=== PATIENT | male | born 1960 | race African-American/Black ===

== ENCOUNTER 2016-09-07 19:08 | Emergency (ER) | payer SELFPAY ==
[~2016-09-07] VITALS: Ht 177.8 cm; Wt 81.0 kg
[2016-09-07] MEDS ORDERED: METOCLOPRAMIDE HCL 10MG/2ML VIAL IV ONE (22:30)
[2016-09-07] MEDS ORDERED: SODIUM CHLORIDE 0.9% 1,000 ML IV ONE (22:30)
[2016-09-07] MEDS ORDERED: DIPHENHYDRAMINE 50MG/ML VIAL IV ONE (22:30)
[2016-09-07] MEDS ORDERED: KETOROLAC 30MG/ML VIAL IV ONE (22:30)
[2016-09-08 00:50] VITALS: BP 121/52
== END 2016-09-08 02:05 | disposition home or self-care (01) ==
LOC: ER 21:37
DX: R51 Headache (principal); R11.2 Nausea with vomiting, unspecified; F17.200 Nicotine dependence, unspecified, uncomplicated; F12.10 Cannabis abuse, uncomplicated
CPT/HCPCS: 70450; 82962; 96361; 96374; 96375; 99285; J1200; J1885; J2765; J7030; Z7610

== ENCOUNTER 2019-01-06 09:27 | Emergency (ER) | payer SELFPAY ==
[~2019-01-06] VITALS: Ht 175.3 cm; Wt 73.0 kg
[2019-01-06] MEDS ORDERED: ONDANSETRON HCL 4MG/2ML INJ IV STA (10:07)
[2019-01-06] MEDS ORDERED: SODIUM CHLORIDE 0.9% 1,000 ML IV ONE (10:07)
[2019-01-06] MEDS ORDERED: KETOROLAC 15MG/ML VIAL IV ONE (10:15)
[2019-01-06 10:35] LABS: BASOPHILS % 0.4 % (0.0-2.0); EOSINOPHILS % 2.2 % (0.0-5.0); HEMATOCRIT. 41.7 % (42.0-52.0); HEMOGLOBIN. 14.4 g/dL (14.0-18.0); LYMPHOCYTES % 18.4 % (20.0-50.0); MEAN CORPUSCULAR HEMOGLOBIN 31.6 pg (28.0-32.0); MEAN CORPUSCULAR VOLUME 91.6 fL (80.0-94.0); MONOCYTES % 5.2 % (2.0-8.0); NEUTROPHILS % 73.8 % (40.0-76.0); PLATELET 191 x1000/uL (130-400); RED BLOOD CELL COUNT 4.55 mill/uL (4.7-6.1); RED CELL DISTRIBUTION WIDTH 14.5 % (11.6-14.6)
[2019-01-06 10:41] LABS: CHLORIDE 106 mEq/L (98-107)
[2019-01-06 10:44] LABS: ETHANOL BLOOD < 10 mg/dL
[2019-01-06 13:24] LABS: CLARITY URINE CLEAR (CLEAR); COLOR URINE YELLOW (YELLOW); KETONES URINE TRACE (NEGATIVE); LEUKOCYTE ESTERASE URINE NEGATIVE (NEGATIVE); NITRITE URINE NEGATIVE (NEGATIVE); OCCULT BLOOD URINE NEGATIVE (NEGATIVE); PH URINE 5.5 (4.5-8.0); PROTEIN URINE TRACE (NEGATIVE); SPECIFIC GRAVITY URINE 1.029 (1.005-1.030)
[2019-01-06 13:53] LABS: *AMPHETAMINES SCREEN URINE NEGATIVE (NEGATIVE)
[2019-01-06 13:54] LABS: *BARBITURATES SCREEN URINE NEGATIVE (NEGATIVE); *BENZODIAZEPINES SCREEN URINE NEGATIVE (NEGATIVE); *COCAINE SCREEN URINE PRESUMTIVE POSITIVE (NEGATIVE); METHADONE URINE SCREEN NEGATIVE (NEGATIVE); OPIATES URINE SCREEN NEGATIVE (NEGATIVE); PHENCYCLIDINE URINE SCREEN NEGATIVE (NEGATIVE)
[2019-01-06 13:55] LABS: CANNABINOID URINE SCREEN PRESUMTIVE POSITIVE (NEGATIVE)
[2019-01-06 14:46] VITALS: BP 123/68
== END 2019-01-06 14:55 | disposition home or self-care (01) ==
LOC: ER 09:50
DX: R10.0 Acute abdomen (principal); F12.129 Cannabis abuse with intoxication, unspecified; F14.129 Cocaine abuse with intoxication, unspecified; R03.0 Elevated blood-pressure reading, without diagnosis of hypertension
CPT/HCPCS: 36415; 71045; 74176; 80053; 80305; 80320; 81003; 83690; 85025; 93005; 96374; 96375; 99284; J1885; J2405; J7030; G0480

== ENCOUNTER 2021-10-11 07:27 | Emergency (ER) | payer MEDICAID ==
[~2021-10-11] VITALS: Ht 175.3 cm; Wt 74.0 kg
[2021-10-11] MEDS ORDERED: MORPHINE SULFATE 4 MG/ML CPJ (NOT FOR IM USE) IV ONE (08:00)
[2021-10-11 08:04] VITALS: BP 138/87
[2021-10-11 08:11] LABS: BASOPHILS % 0.6 % (0.0-2.0); EOSINOPHILS % 1.8 % (0.0-5.0); HEMATOCRIT. 45.3 % (42.0-52.0); HEMOGLOBIN. 15.7 g/dL (14.0-18.0); LYMPHOCYTES % 24.3 % (20.0-50.0); MEAN CORPUSCULAR HEMOGLOBIN 31.3 pg (28.0-32.0); MEAN CORPUSCULAR VOLUME 90.2 fL (80.0-94.0); MEAN PLATELET VOLUME 8.8 fl (7.4-10.4); MONOCYTES % 8.5 % (2.0-8.0); NEUTROPHILS % 64.8 % (40.0-76.0); PLATELET 203 x1000/uL (130-400); RED BLOOD CELL COUNT 5.03 mill/uL (4.7-6.1); RED CELL DISTRIBUTION WIDTH 14.3 % (11.6-14.6)
[2021-10-11 08:18] LABS: CHLORIDE 107 mEq/L (98-107)
[2021-10-11] MEDS ORDERED: OMEP20TA2 PO (10:28)
[2021-10-11] MEDS ORDERED: TOPUD PO (10:28)
== END 2021-10-11 10:49 | disposition home or self-care (01) ==
LOC: ER 07:27
DX: R07.89 Other chest pain (principal); R03.0 Elevated blood-pressure reading, without diagnosis of hypertension
CPT/HCPCS: 36415; 71045; 80053; 83880; 84484; 85025; 93005; 96374; 99285; J2270

== ENCOUNTER 2021-11-13 08:21 | Emergency (ER) | payer MEDICAID ==
[~2021-11-13] VITALS: Ht 175.3 cm; Wt 73.0 kg
[~2021-11-13 08:21] MED LIST: OMEP20TA23 PO; TOPUD PO
[2021-11-13] MEDS ORDERED: ACETAMINOPHEN 325MG TABLET PO STA (09:02)
[2021-11-13] MEDS ORDERED: IBUPROFEN 600MG TABLET PO STA (09:02)
[2021-11-13 10:55] LABS: CLARITY URINE CLEAR (CLEAR); COLOR URINE YELLOW (YELLOW); KETONES URINE TRACE (NEGATIVE); LEUKOCYTE ESTERASE URINE NEGATIVE (NEGATIVE); NITRITE URINE NEGATIVE (NEGATIVE); OCCULT BLOOD URINE NEGATIVE (NEGATIVE); PH URINE 7.5 (4.5-8.0); PROTEIN URINE TRACE (NEGATIVE); SPECIFIC GRAVITY URINE 1.024 (1.005-1.030)
[2021-11-13] MEDS ORDERED: ACET-2708 MT (11:22)
[2021-11-13] MEDS ORDERED: IBUP-2028 MT (11:22)
[2021-11-13 11:48] VITALS: BP 142/86
[2021-11-13 11:50] LABS: *AMPHETAMINES SCREEN URINE NEGATIVE (NEGATIVE); *BARBITURATES SCREEN URINE NEGATIVE (NEGATIVE); *BENZODIAZEPINES SCREEN URINE NEGATIVE (NEGATIVE); *COCAINE SCREEN URINE PRESUMTIVE POSITIVE (NEGATIVE); CANNABINOID URINE SCREEN PRESUMTIVE POSITIVE (NEGATIVE); METHADONE URINE SCREEN NEGATIVE (NEGATIVE); OPIATES URINE SCREEN NEGATIVE (NEGATIVE); PHENCYCLIDINE URINE SCREEN NEGATIVE (NEGATIVE)
== END 2021-11-13 11:49 | disposition home or self-care (01) ==
LOC: ER 08:21
DX: R51.9 Headache, unspecified (principal); F14.10 Cocaine abuse, uncomplicated; F12.10 Cannabis abuse, uncomplicated
CPT/HCPCS: 80305; 81003; 99284

== ENCOUNTER 2022-10-10 06:27 | Emergency (ER) | payer MEDICAID ==
[~2022-10-10] VITALS: Ht 175.3 cm; Wt 68.0 kg
[~2022-10-10 06:27] MED LIST changes: +ACET-2708 MT; +IBUP-2028 MT
[2022-10-10] MEDS ORDERED: KETOROLAC 30MG/ML VIAL IV STA (06:34)
[2022-10-10] MEDS ORDERED: IBUPROFEN 400MG TABLET PO ONE (06:45)
[2022-10-10] MEDS ORDERED: METOCLOPRAMIDE HCL 10MG/2ML VIAL IV ONE (06:45)
[2022-10-10] MEDS ORDERED: SODIUM CHLORIDE 0.9% 1,000 ML IV ONE (06:45)
[2022-10-10] MEDS ORDERED: METOCLOPRAMIDE HCL 10MG TABLET PO ONE (06:45)
[2022-10-10 07:01] VITALS: BP 144/87
[2022-10-10] MEDS ORDERED: T3 PO (07:44)
[2022-10-10] MEDS ORDERED: IBUP-2028 PO (07:44)
== END 2022-10-10 07:52 | disposition home or self-care (01) ==
LOC: ER 06:27
DX: R51.9 Headache, unspecified (principal); M54.2 Cervicalgia; F12.10 Cannabis abuse, uncomplicated
CPT/HCPCS: 99283; J8597; J7030

== ENCOUNTER 2023-04-29 05:50 | Emergency (ER) | payer MEDICAID ==
[~2023-04-29] VITALS: Ht 175.3 cm; Wt 71.3 kg
[~2023-04-29 05:50] MED LIST changes: +IBUP-2028 PO; +T3 PO
[2023-04-29 06:03] VITALS: BP 112/78; PULSE 66; RESP 16; TEMP 97.8; O2SAT 98
== END 2023-04-29 06:56 | disposition left against medical advice (07) ==
LOC: ER 05:50
DX: I10 Essential (primary) hypertension (principal); Z53.21 Procedure and treatment not carried out due to patient leaving prior to being seen by health care provider
CPT/HCPCS: 99281

== ENCOUNTER 2025-01-12 02:52 | Emergency (ER) | payer MEDICAID ==
[~2025-01-12] VITALS: Ht 180.3 cm; Wt 82.0 kg
[2025-01-12 02:57] VITALS: O2SAT 100
[2025-01-12 03:15] VITALS: TEMP 36.6; O2SAT 100
[2025-01-12] MEDS: KETOROLAC 30MG/ML VIAL IM ONE (03:26)
[2025-01-12 03:57] VITALS: BP 156/91; PULSE 60; RESP 18
[2025-01-12] MEDS: HYDROCODONE/ACETAMINOPHEN 5/325MG TABLET PO ONE (03:57)
== END 2025-01-12 04:30 | disposition left against medical advice (07) ==
LOC: ER 02:52
DX: N50.811 Right testicular pain (principal); Z79.1 Long term (current) use of non-steroidal anti-inflammatories (NSAID); Z79.899 Other long term (current) drug therapy; F10.90 Alcohol use, unspecified, uncomplicated; F12.90 Cannabis use, unspecified, uncomplicated
CPT/HCPCS: 76870; 93976; 99284